=== PATIENT | male | born 1960 | race African-American/Black ===

== ENCOUNTER 2016-12-24 09:45 | Emergency (ER) | payer SELFPAY ==
[2016-12-24 09:48] VITALS: BP 119/72; PULSE 98; RESP 14; TEMP 97.6; O2SAT 99
[2016-12-24] MEDS ORDERED: TAMS5CAP PO (10:07)
--- NOTE | 2016-12-24 10:09 | PD ---
HPI Chief Complaint: Medication Refill Request Time Seen by Provider: 10:03 Travel History International Travel<30 days: No Contact w/Intl Traveler<30days: No Traveled to known affect area: No History of Present Illness HPI 48-year-old Afro[place] male with history of BPH treated with Flomax 0.4 mg daily at bedtime presents the emergency department status post recently released from prison. He has been out of this medication for the last week and now is having increased difficulty passing his urine. Patient denies burning, discharge, fever, or flank pain. Patient has no known drug allergies. [facility] Social History Alcohol Use: Yes Tobacco Use: Yes Substance Use: No Allergies-Medications (Allergen,Severity, Reaction): Coded Allergies: No Known Allergies (Unverified , 12/24/16) Reported Meds & Prescriptions Reported Meds & Active Scripts Active Flomax (Tamsulosin HCl) 0.4 Mg Cap 0.4 Mg PO HS Review of Systems Except as stated in HPI: all other systems reviewed are Neg General / Constitutional: No: Fever Eyes: No: Visual changes HENT: No: Headaches Cardiovascular: No: Chest Pain or Discomfort Respiratory: No: Shortness of Breath Gastrointestinal: No: Abdominal Pain Genitourinary: Positive: Decreased Urinary Output, Hesitancy, Dribbling, No: Dysuria Musculoskeletal: No: Pain Skin: No Rash Neurologic: No: Weakness Psychiatric: No: Depression Endocrine: No: Polydipsia Hematologic/Lymphatic: No: Easy Bruising Physical Exam Narrative GENERAL: Patient is in no acute distress. SKIN: Warm and dry. HEAD: Atraumatic. Normocephalic. EYES: Pupils equal and round. No scleral icterus. No injection or drainage. ENT: No nasal bleeding or discharge. Mucous membranes pink and moist. NECK: Trachea midline. No JVD. CARDIOVASCULAR: Regular rate and rhythm. RESPIRATORY: No accessory muscle use. Clear to auscultation. Breath sounds equal bilaterally. GASTROINTESTINAL: Abdomen soft, non-tender, nondistended. Hepatic and splenic margins not palpable. MUSCULOSKELETAL: Extremities without clubbing, cyanosis, or edema. No obvious deformities. NEUROLOGICAL: Awake and alert. No obvious cranial nerve deficits. Motor grossly within normal limits. Five out of 5 muscle strength in the arms and legs. Normal speech. PSYCHIATRIC: Appropriate mood and affect; insight and judgment normal. Data Data Last Documented VS Vital Signs Date Time Temp Pulse Resp B/P (MAP) Pulse Ox O2 Delivery O2 Flow Rate FiO2 12/24/16 09:48 97.6 98 14 119/72 (88) 99 MDM Medical Decision Making Medical Screen Exam Complete: Yes Emergency Medical Condition: Yes Differential Diagnosis BPH. Urinary retention. Medication refill Narrative Course Patient is given a refill Flomax 0.4 mg daily #30. Patient should establish with a local primary care physician for further prescription refills. Patient can return to emergency department as needed. Diagnosis Primary Impression: Encounter for medication refill Additional Impression: BPH (benign prostatic hyperplasia) Qualified Codes: N40.1 - Benign prostatic hyperplasia with lower urinary tract symptoms; R39.14 - Feeling of incomplete bladder emptying Referrals: [facility] Patient Instructions: Benign Prostatic Hypertrophy (ED), General Instructions Additional Instructions: Patient is given a refill Flomax 0.4 mg daily #30. Patient should establish with a local primary care physician for further prescription refills. Patient can return to emergency department as needed. Scripts Tamsulosin (Flomax) 0.4 Mg Cap 0.4 MG PO HS for Manage Prostate Problems, #30 CAP 0 Refills Prov: Phong Reed MD 12/24/16 Disposition: 01 DISCHARGE HOME Condition: Stable Ulises Hoffmann Dec 24, 2016 10:09
== END 2016-12-24 10:41 | disposition home or self-care (01) ==
LOC: NEPK 09:45
DX: N40.1 Benign prostatic hyperplasia with lower urinary tract symptoms (principal); R39.14 Feeling of incomplete bladder emptying; Z76.0 Encounter for issue of repeat prescription
CPT/HCPCS: 99281